=== PATIENT | female | born 1965 | race Caucasian/White ===

== ENCOUNTER 2017-03-08 11:39 | Emergency (ER) | payer SELFPAY ==
[2017-03-08 11:52] VITALS: BP 139/86
--- NOTE | 2017-03-08 12:13 | ER Document Report ---
HPI - HPI Patient complains to provider of: skin rash Onset: Other - 3 days Onset/Duration: Worse Quality of pain: Achy Pain Level: 4 Context: Patient complains of painful skin rash that started to develop to her right buttocks 3 days ago. Patient states rash has started to spread. Patient denies any fever or injury to the area. Associated Symptoms: Other - skin rash Exacerbated by: Movement Relieved by: Denies Similar symptoms previously: No Recently seen / treated by doctor: No - ROS ROS below otherwise negative: Yes Systems Reviewed and Negative: Yes All other systems reviewed and negative - CONSTITUTIONAL Constitutional: DENIES: Fever - REPRODUCTIVE Reproductive: DENIES: : - DERM Skin Color: Normal Skin Problems: Rash Past Medical History - General Information source: Patient - Social History Smoking Status: Current Every Day Smoker Frequency of alcohol use: None Drug Abuse: None Occupation: [employer] with: Family Family History: Reviewed & Not Pertinent - Medical History Medical History: Negative Renal/ Medical History: Denies: Hx Peritoneal Dialysis Past Surgical History: Reports: Hx Abdominal Surgery, Hx Section, Hx Tonsillectomy - Immunizations Immunizations up to date: Yes Hx Diphtheria, Pertussis, Tetanus Vaccination: No Vertical Provider Document - CONSTITUTIONAL Agree With Documented VS: Yes Exam Limitations: No Limitations General Appearance: WD/WN, No Apparent Distress - INFECTION CONTROL TRAVEL OUTSIDE OF THE [place] IN LAST 30 DAYS: No - HEENT HEENT: Atraumatic, Normocephalic - NECK Neck: Normal Inspection, Supple - RESPIRATORY Respiratory: Breath Sounds Normal, No Respiratory Distress, Chest Non-Tender O2 Sat by Pulse Oximetry: 97 - CARDIOVASCULAR Cardiovascular: Regular Rate, Regular Rhythm, No Murmur - BACK Back: Normal Inspection - MUSCULOSKELETAL/EXTREMETIES Musculoskeletal/Extremeties: MAEW, FROM - NEURO Level of Consciousness: Awake, Alert, Appropriate Motor/Sensory: No Motor Deficit - DERM Integumentary: Warm, Dry, Rash - Vesicular skin lesions to right buttocks with minimal surrounding erythema, no concern for abscess. Course - Vital Signs Vital signs: Temp Pulse Resp BP Pulse Ox 98.2 F 70 16 139/86 H 97 03/08/17 11:50 03/08/17 11:50 03/08/17 11:50 03/08/17 11:50 03/08/17 11:50 Discharge - Discharge Clinical Impression: Herpes zoster Qualifiers: Herpes zoster complications: without complications Qualified Code(s): B02.9 - Zoster without complications Condition: Stable Disposition: HOME, SELF-CARE Instructions: Shingles ([facility]), Oral Narcotic Medication ([facility]), Acyclovir ([facility]) Additional Instructions: return as needed for any new or worsening symptoms follow up with a primary care provider for a recheck Prescriptions: Acetaminophen with Codeine [Acetaminophen-Cod #3 Tablet] 1 each PO Q6 PRN #15 tablet PRN Reason: Acyclovir [Zovirax 200 mg Capsule] 800 mg PO Q4H #140 capsule Referrals: [facility] [Provider Group] - Follow up as needed
== END 2017-03-08 12:25 | disposition home or self-care (01) ==
LOC: ER 11:39
DX: B02.9 Zoster without complications (principal); R21 Rash and other nonspecific skin eruption
CPT/HCPCS: 99282

== ENCOUNTER 2018-04-03 19:52 | Emergency (ER) | payer SELFPAY ==
[2018-04-03] MEDS ORDERED: POLYMYXIN B SULFATE/TMP OPH SOLN (10 ML/ER DISP) OD PRN (23:04)
--- NOTE | 2018-04-03 23:10 | ER Document Report ---
HPI - HPI Pain Level: Denies Notes: Patient is a 52-year-old female with no significant past medical history who presents to the ED complaining of possible scratch to her right medial eye status post injury 4 days ago. Patient states that she was coloring/drawing with her daughter when her daughter stick a rather dull pencil towards her head when she turned to the right. Patient states that she has had some irritation, but no significant vision changes. Patient states that she did have another provider-friend look at it a couple days ago and they did not see anything significant at that time, but did not stain her eye. Patient states that she has not noticed any discharge from her eye. She does have soreness in that area. Denies any headache, fever, neck pain, changes in vision/speech/mentation /hearing, URI, sore throat, chest pain, palpitations, syncope, cough, shortness of breath, wheeze, dyspnea, abdominal pain, nausea/vomiting/diarrhea, urinary retention, dysuria, hematuria, or rash. Pt does not wear contacts. - ROS Systems Reviewed and Negative: Yes All other systems reviewed and negative - NEURO Neurology: REPORTS: Headache. DENIES: Vision blurred - REPRODUCTIVE Reproductive: DENIES: : Past Medical History - Social History Smoking Status: Unknown if Ever Smoked Chew tobacco use (# tins/day): No Drug Abuse: None Family History: Reviewed & Not Pertinent Patient has suicidal ideation: No Patient has homicidal ideation: No Renal/ Medical History: Denies: Hx Peritoneal Dialysis Past Surgical History: Reports: Hx Abdominal Surgery, Hx Section, Hx Tonsillectomy - Immunizations Immunizations up to date: Yes Hx Diphtheria, Pertussis, Tetanus Vaccination: No Vertical Provider Document - CONSTITUTIONAL Agree With Documented VS: Yes Notes: PHYSICAL EXAMINATION: GENERAL: Well-appearing, well-nourished and in no acute distress. A&Ox4 HEAD: Atraumatic, normocephalic. EYES: Pupils equal round and reactive to light, extraocular movements intact, sclera anicteric, conjunctiva left shows very mild episcleritis right w/o discharge or matting. Non-tender to palp of the globe and eye itself. No surrounding erythema or swelling noted. Visual acuity 20/40 b/l and in each eye (performed by myself at bedside with my own eye chart). Tonometry averaged 12 b/l. Wood's lamp/flourescein: No laceration, ulceration, or ira sign noted. No obvious foreign body appreciated. + small abrasion noted. ENT: Nares patent and without discharge. oropharynx clear without exudates. No tonsilar hypertrophy or erythema. Moist mucous membranes. NECK: Normal range of motion, supple without lymphadenopathy. No rigidity/ meningismus. LUNGS: Breath sounds clear to auscultation bilaterally and equal. No wheezes rales or rhonchi. HEART: Regular rate and rhythm without murmurs, rubs, gallops. NEUROLOGICAL: Cranial nerves grossly intact. Normal speech, normal gait. PSYCH: Normal mood, normal affect. SKIN: Warm, Dry, normal turgor, no rashes or lesions noted. - INFECTION CONTROL TRAVEL OUTSIDE OF THE [place] IN LAST 30 DAYS: No Course - Re-evaluation Re-evalutation: 04/03/18 23:08 Patient is an afebrile, well-hydrated, 52-year-old female who presents to the ED with a small abrasion to her right eye and some mild episcleritis medially. Vitals are acceptable without any significant tachycardia, tachypnea, or hypoxia. PE is otherwise unremarkable. See eye exam. Tonometry averaged 12 bilaterally. Polytrim dispensed today. Patient is nontoxic-appearing is tolerating p.o. without any difficulties. No further labs or imaging warranted at this time based on H&P. Tetracaine did resolve her discomfort to the right eye when applied. Low suspicion for any retained corneal or lid foreign body, deep space infection including orbital cellulitis/abscess, acute glaucoma, penetrating globe injury, retinal detachment, meningitis, sepsis, fracture, compartment syndrome. Conservative measures otherwise for symptoms with proper handwashing. Recheck with your PCM in 2-3 days. Schedule a f/u with Ophthalmology next week. Return to the ED with any worsening/concerning symptoms otherwise as reviewed in discharge. Patient is in agreement. - Vital Signs Vital signs: Temp Pulse Resp BP Pulse Ox 98.4 F 84 15 144/93 H 97 04/03/18 20:14 04/03/18 20:14 04/03/18 20:14 04/03/18 20:14 04/03/18 20:14 Procedures - Eye Procedure Right Time completed: 23:00 Eye Irrigated w/ Saline (ccs): 10 Alcaine Drops Administered: Yes - tetracaine Fluorescein applied: Right Antibiotic Oinment/Drps Admin: Right eye Slit lamp used: No Bilateral Time completed: 23:00 Eye Irrigated w/ Saline (ccs): 10 - Tonometry performed successfully w/o complications Alcaine Drops Administered: Yes - tetracaine Discharge - Discharge Clinical Impression: Episcleritis of right eye Corneal abrasion Qualifiers: Encounter type: initial encounter Laterality: right Qualified Code(s): S05.01XA - Injury of conjunctiva and corneal abrasion without foreign body, right eye, initial encounter Condition: Stable Disposition: HOME, SELF-CARE Instructions: Corneal Abrasion ([facility]) Additional Instructions: keep eyes clean Avoid scratching/touching eyes Wash hands regularly Use eye drops as directed Maintain adequate fluid intake tylenol/ibuprofen as needed over the counter cold medication as needed for symptoms F/u: with your PCM in 2-3 days for a recheck Schedule an appointment with ophthalmology for further evaluation, call tomorrow Return to the ED with any worsening symptoms and/or development of fever, headache, changes in vision, eye pain, worsening eye redness, redness around the eyes, purulent discharge, sore throat, facial swelling, neck pain/stiffness , chest pain, palpitations, syncope, shortness of breath, trouble breathing, abdominal pain, n/v/d, blood in stool/urine, dysuria, or other worsening symptoms that are concerning to you. Forms: Elevated Blood Pressure Referrals: RSIA CRABTREE MD [ACTIVE STAFF] - Follow up in 3-5 days
[2018-04-03] MEDS ORDERED: POLYMYXIN B SULFATE/TMP OPH SOLN 10 ML ONE (23:21)
[2018-04-04 00:24] VITALS: BP 150/95
== END 2018-04-04 00:24 | disposition home or self-care (01) ==
LOC: ER 19:52
DX: H15.101 Unspecified episcleritis, right eye (principal); S05.01XA Injury of conjunctiva and corneal abrasion without foreign body, right eye, initial encounter; X58.XXXA Exposure to other specified factors, initial encounter
CPT/HCPCS: 99283

== ENCOUNTER 2018-05-30 15:27 | Emergency (ER) | payer SELFPAY ==
[2018-05-30] MEDS ORDERED: VALACYCLOVIR HCL 500 MG TABLET PO ONE (16:59)
[2018-05-30 17:00] VITALS: BP 132/94
--- NOTE | 2018-05-30 17:08 | ER Document Report ---
HPI - HPI Pain Level: 1 Notes: Patient presents with chief complaint of possible shingles outbreak to her right buttock. Patient is also concerned that she may have shingles in her right eye. Patient reports history of shingles. States this feels similar. Has never had shingles in her eye. - REPRODUCTIVE Reproductive: DENIES: : Past Medical History - General Information source: Patient - Social History Smoking Status: Current Every Day Smoker Frequency of alcohol use: None Drug Abuse: None Family History: Reviewed & Not Pertinent Patient has suicidal ideation: No Patient has homicidal ideation: No - Medical History Medical History: Negative Renal/ Medical History: Denies: Hx Peritoneal Dialysis Past Surgical History: Reports: Hx Abdominal Surgery, Hx Appendectomy, Hx Section, Hx Tonsillectomy, Hx Tubal Ligation - Immunizations Immunizations up to date: Yes Hx Diphtheria, Pertussis, Tetanus Vaccination: No Vertical Provider Document - CONSTITUTIONAL Notes: PHYSICAL EXAMINATION: GENERAL: Well-appearing, well-nourished and in no acute distress. HEAD: Atraumatic, normocephalic. EYES: Pupils equal round extraocular movements intact, conjunctiva are normal, no erythema, drainage or swelling noted, no dendrites noted. ENT: Nares patent, one small red dot noted on the right side of nose. NECK: Normal range of motion LUNGS: No respiratory distress Musculoskeletal: Normal range of motion NEUROLOGICAL: Normal speech, normal gait. PSYCH: Normal mood, normal affect. SKIN: Warm, Dry, normal turgor, rash to inside of right buttock noted, it appears vesicular, consistent with shingles. - INFECTION CONTROL TRAVEL OUTSIDE OF THE [place] IN LAST 30 DAYS: No Course - Re-evaluation Re-evalutation: Eye examination was performed, tetracaine drop was instilled. No erythema, swelling or drainage noted to the external eye. No dendrites noted. No obvious lesions were noted consistent with ophthalmic shingles. Consulted my attending Dr. Mederos who does recommend consulting ophthalmology. 05/30/18 17:[address] Vaca, Opthomologist on-call for [facility] eye clinic, at [facility]. She agrees to see patient in the office tomorrow morning at 930. She recommends putting the patient on Valtrex 1000 mg 3 times daily. She states this will cover not only for the shingles on the buttocks but for possible ophthalmic shingles. Patient will be discharged in stable condition, discussed the importance of follow-up with patient, patient agrees to see Dr. Vaca tomorrow morning at 0930. - Vital Signs Vital signs: Temp Pulse Resp BP Pulse Ox 98.3 F 73 18 132/94 H 97 05/30/18 16:57 05/30/18 16:57 05/30/18 16:57 05/30/18 16:57 05/30/18 16:57 Discharge - Discharge Clinical Impression: Shingles Qualifiers: Herpes zoster complications: without complications Qualified Code(s): B02.9 - Zoster without complications Condition: Stable Disposition: HOME, SELF-CARE Additional Instructions: Shingles You have shingles. Shingles is caused by the chicken pox virus, The virus has been surviving dormant in a nerve cell since you had chicken pox years ago. The virus has spread down a nerve root to reach the skin. Typically, an band-like area of pain and skin sensitivity develops, then small blisters erupt in the area. Shingles lasts two or three weeks, but sometimes leaves persistent pain. You are contagious -- you can give children chicken pox. But you can't give anyone shingles. Antiviral medicines (such as acyclovir or famciclovir) can help, but the rash usually worsens for about a week. Pain medication is often given if the area hurts. Antihistamines such as Benadryl may be necessary for itching if it does not respond to soda baths and calamine lotion. Sometimes cortisone medicine or nerve-block shots are necessary if pain is severe. If the area remains severely painful as the sores heal, or if you suspect an infection developing in the sores, see your doctor. While it does not appear to be that you have shingles in your eye, we cannot rule it out. I have consulted Dr. Vaca at [facility] in [place] as she is the covering on-call provider. She states that she would like you to start taking Valtrex 1 g 3 times daily. And she would like to see you tomorrow morning in her [place] office at 9:30 AM. It is [facility] it is located on the corner of [address]. I have enclosed the contact information as well. Please take the medication as prescribed, you were given the first dose today, you can get the prescription filled tomorrow and start the second dose in the morning. [facility] Dr. Vaca [address] [place] [address] Prescriptions: Hydrocodone/Acetaminophen [Hydrocodon-Acetaminophen 5-325] 1 each PO Q4H PRN # 12 tablet PRN Reason: For Pain Valacyclovir HCl [Valtrex 500 Mg Tablet] 1,000 mg PO TID #21 tablet
== END 2018-05-30 17:24 | disposition home or self-care (01) ==
LOC: ER 15:27
DX: B02.9 Zoster without complications (principal); F17.200 Nicotine dependence, unspecified, uncomplicated
CPT/HCPCS: 99283

== ENCOUNTER 2020-07-05 22:23 | Emergency (ER) | payer SELFPAY ==
[2020-07-05] MEDS ORDERED: KETOROLAC TROMETHAMINE INJ/PF 30 MG/1 ML SDV IV ONE (22:51)
--- NOTE | 2020-07-05 22:51 | ER Document Report ---
ED Fall - General Chief Complaint: Back Pain Stated Complaint: FALL/BACK PAIN Time Seen by Provider: 07/05/20 22:34 Information source: Patient Notes: This 54-year-old woman who presents to the emergency department with a history of a fall while playing with her child. Apparently they were having a competition to see who could keep the hiatus she kicked with her right leg and her left leg went from under her and she fell backwards and hitting her back and hip area. She denies loss of consciousness she denies neck neck pain. She was brought to the emergency department by EMS, apparently given Zofran 4 mg and f entanyl 50 mcg. She complains of pain in the midline lower back and kidney area. She denies numbness in the lower extremities, incontinence of urine or stool, there is no saddle paresthesia. TRAVEL OUTSIDE OF THE [place] IN LAST 30 DAYS: No - Related data Allergies/Adverse Reactions: codeine Allergy (Verified 05/30/18 15:29) Past Medical History - General Information source: Patient - Social History Smoking Status: Current Every Day Smoker Frequency of alcohol use: None Drug Abuse: None Family History: Reviewed & Not Pertinent Renal/ Medical History: Denies: Hx Peritoneal Dialysis Past Surgical History: Reports: Hx Abdominal Surgery, Hx Appendectomy, Hx Section, Hx Tonsillectomy, Hx Tubal Ligation - Immunizations Immunizations up to date: Yes Hx Diphtheria, Pertussis, Tetanus Vaccination: No Review of Systems - Review of Systems Notes: Constitutional: Negative for fever. HENT: Negative for sore throat. Eyes: Negative for visual changes. Cardiovascular: Negative for chest pain. Respiratory: Negative for shortness of breath. Gastrointestinal: Negative for abdominal pain, vomiting or diarrhea. Genitourinary: Negative for dysuria. Musculoskeletal: See HPI Skin: Negative for rash. Neurological: Negative for headaches, weakness or numbness. 10 point ROS negative except as marked above and in HPI. Physical Exam - Vital signs Vitals: Temp 98.2 F 07/05/20 22:23 - Notes Notes: PHYSICAL EXAMINATION: Physical Exam: General: Well-nourished well-developed 54-year-old female in no acute distress HEENT: NC/AT, pupils equal round and reactive to light, MM moist,nares clear, oropharynx clear, airway patent Neck: supple, no adenopathy, no masses. Good range of motion Lungs: clear, no wheezing, no rales no rhonchi CVS: Regular rate and rhythm no murmur gallop or rub Abdomen: Soft, active, nontender, no masses, no hepatosplenomegaly Ext: No edema, clubbing or cyanosis. Back: Tenderness in the midline lumbar region, no crepitus, no obvious deformity. Neuro: Alert and responsive, moving all 4 extremities on command, cranial nerves intact, no focal findings Skin: Intact no open lesions, no rash PSYCH: Normal mood, normal affect. Course - Re-evaluation Re-evalutation: 07/06/20 03:01 Patient is resting well. I reviewed the findings of the CT scan showing a T11 compression fracture approximately 40%, explained the patient is a painful condi tion and that there is a procedure called kyphoplasty which may be used to treat the compression. The [facility], orthopedic services at [facility] in [facility] have the capability of managing this problem. - Vital Signs Vital signs: Temp Pulse Resp BP Pulse Ox 97.8 F 82 20 145/63 H 97 07/06/20 03:43 07/06/20 03:43 07/06/20 03:43 07/06/20 03:43 07/06/20 03:43 - Laboratory Results Critical Laboratory Results Reviewed: No Critical Results Attending or Supervising Physician who Reviewed Labs: ELOISE LOPEZ - Radiology Results Radiology Results Interpreted: 07/06/20 03:[address] 07/05/20 22:54 IMPRESSION: 1. Acute T12 compression fracture with mild bony retropulsion as above. There is also mild, broad-based depression of the inferior endplate of T11, favored to be acute as well. 2. Incidental, 4.9 cm left adnexal cystic mass. Correlation with ultrasound is recommended. 3. Incidental emphysematous changes and evidence of arterial vascular disease. TECHNICAL DOCUMENTATION: Quality ID # 436: Final reports with documentation of one or more dose reduction techniques (e.g., Automated exposure control, adjustment of the mA and/or kV according to patient size, use of iterative reconstruction technique) copyright 2011 [employer]- All Rights Reserved Thoracic Spine CT 07/05/20 22:54 IMPRESSION: 1. Acute T12 compression fracture with mild bony retropulsion as above. There is also mild, broad-based depression of the inferior endplate of T11, favored to be acute as well. 2. Incidental, 4.9 cm left adnexal cystic mass. Correlation with ultrasound is recommended. 3. Incidental emphysematous changes and evidence of arterial vascular disease. TECHNICAL DOCUMENTATION: Quality ID # 436: Final reports with documentation of one or more dose reduction techniques (e.g., Automated exposure control, adjustment of the mA and/or kV according to patient size, use of iterative reconstruction technique) copyright 2011 [employer]- All Rights Reserved Critical Radiology Results Reviewed: Yes Attending or Supervising Physician who Reviewed Radiology: ELOISE LOPEZ Discharge - Discharge Clinical Impression: Compression fracture of T11 vertebra Qualifiers: Encounter type: initial encounter Qualified Code(s): S22.080A - Wedge compression fracture of T11-T12 vertebra, initial encounter for closed fracture Condition: Good Disposition: HOME, SELF-CARE Instructions: Compression Fracture of the Spine ([facility]), Ice Packs ([facility]), Oral Narcotic Medication ([facility]) Additional Instructions: You were seen in the emergency department ismael with a history of fall in which she sustained a compression fracture of T11. This is a fracture which is sometimes treated with kyphoplasty. This procedure can be help heal the process quicker. The [facility] orthopedic group in [facility] has the ability to perform the procedure. The telephone number is area code [phone]. An appointment can be requested for further evaluation and treatment. You were given medications to use for pain and for nausea. Please take the medications as prescribed. You may supplement ibuprofen for pain and apply a cold compress to the area on the area of pain. If your symptoms are worsening or if you have other concerns you may return to the emergency department for further evaluation and treatment. HOME CARE INSTRUCTIONS & INFORMATION: Thank you for choosing us for your medical needs. We hope you're satisfied with the care you received. After you leave, you must properly care for your problem and, at the same time, observe its progress. Any condition can change. Some illnesses can change rapidly over hours or days. If your condition worsens, return to the Emergency Department or see your physician promptly. ABOUT YOUR X-RAYS AND EKG'S: If you had an EKG or X-rays taken, they have been read by the Emergency Physician. The X-rays and EKG's will also be read by a Radiologist or Stock Replenisher within 24 hours. If discrepancies are noted, you will be notified by telephone. Please be certain the ED has a correct telephone number & address where you can be reached. Also, realize that some fractures or abnormalities do not show up on initial X-rays. If your symptoms continue, see your physician. ABOUT YOUR LABORATORY TEST: If you had laboratory tests, the results have been reviewed by the Emergency Physician. Some test results (for example cultures) may not be available for several days. You will be contacted if any test result shows you need additional treatment. Please be certain the ED has a correct telephone number and address where you can be reached. ABOUT YOUR MEDICATIONS: You will receive instructions on how to take your medicine on the prescription label you receive. Additional information may be provided by the Pharmacy. If you have questions afterwards, call the ED for clarification or further instructions. Some prescribed medications may cause drowsiness. Do not perform tasks such as driving a car or operating machinery without consulting your Pharmacist. If you feel you need a refill of pain medication, your condition will need re-evaluation. Please do not call for a refill of any medication. ABOUT YOUR SIGNATURE: Signature of this document acknowledges to followin. Understanding that you received emergency treatment and that you may be released before al medical problems are known or treated. Please be certain the ED has a correct phone number & address where you can be reached. 2. Acknowledgement that you will arrange for follow-up care as recommended. 3. Authorization for the Emergency Physician to provide information to your follow-up Physician in order to maximize your care. AT ANY TIME, IF YOUR SYMPTOMS CHANGE SIGNIFICANTLY OR WORSEN OR YOU DEVELOP NEW SYMPTOMS, RETURN TO THE EMERGENCY DEPARTMENT IMMEDIATELY FOR RE-EVALUATION. OUR GOAL IS TO PROVIDE EXCELLENT MEDICAL CARE! WE HOPE THAT WE HAVE MET YOUR EXPECTATIONS DURING YOUR EMERGENCY DEPARTMENT VIS IT AND THAT YOU FEEL YOU HAVE RECEIVED EXCELLENT CARE! Prescriptions: Oxycodone HCl/Acetaminophen [Percocet 5-325 mg Tablet] 1 tab PO Q4H PRN #15 tablet PRN Reason: Ondansetron [Zofran Odt 4 mg Tablet] 1 tab PO Q4H PRN #10 tab.rapdis PRN Reason: For Nausea/Vomiting
[2020-07-05 23:57] LABS: APPEARANCE,URINE CLEAR; BILIRUBIN,URINE NEGATIVE (NEGATIVE); COLOR,URINE YELLOW; GLUCOSE, URINE NEGATIVE (NEGATIVE); KETONES,URINE NEGATIVE (NEGATIVE); PROTEIN,URINE NEGATIVE (NEGATIVE); URINE SPECIFIC GRAVITY 1.011; UROBILINOGEN,URINE NEGATIVE mg/dL (<2.0)
--- NOTE | 2020-07-06 00:25 | RADIOLOGY REPORT (SQ) ---
EXAM DESCRIPTION: CT THORACIC SPINE WITHOUT IV CONTRAST, CT LUMBAR SPINE WITHOUT IV CONTRAST COMPLETED DATE/TME: 07/05/2020 23:42 CLINICAL HISTORY: 54 years, Female, back injury and pain. Fracture. COMPARISON: None. TECHNIQUE: Noncontrast axial, coronal, and sagittal images of the thoracic spine and lumbar spine were obtained. Images stored on PACS. All CT scanners at this facility use dose modulation, iterative reconstruction, and/or weight based dosing when appropriate to reduce radiation dose to as low as reasonably achievable (ALARA). [facility]: Dose Right [facility]: CareDose [facility]: Dose Right [facility]: Teradose 4D [facility]: Ansira LIMITATIONS: None. FINDINGS: There is an acute-appearing T12 compression fracture with approximately 40% loss of height anteriorly and 3 mm bony retropulsion, without significant acquired spinal canal stenosis. There is a small adjacent paraspinal hematoma. The posterior elements are intact. There is no subluxation. There is slight broad-based concave depression of the inferior endplate of T11, which could be acute or chronic, with the former favored. Remaining thoracic and lumbar vertebral body heights are maintained. No definite focal disc protrusion is identified. There is partial visualization of at least mild biapical emphysematous changes and there is also mild biapical subpleural scarring. No layering pleural fluid collection is seen. Arterial calcifications are identified. There is no abdominal aortic aneurysm. There is a 4.9 cm cystic mass in the left adnexal region. Correlation with pelvic ultrasound is recommended. IMPRESSION: 1. Acute T12 compression fracture with mild bony retropulsion as above. There is also mild, broad-based depression of the inferior endplate of T11, favored to be acute as well. 2. Incidental, 4.9 cm left adnexal cystic mass. Correlation with ultrasound is recommended. 3. Incidental emphysematous changes and evidence of arterial vascular disease. TECHNICAL DOCUMENTATION: Quality ID # [id number]: Final reports with documentation of one or more dose reduction techniques (e.g., Automated exposure control, adjustment of the mA and/or kV according to patient size, use of iterative reconstruction technique) copyright 2011 [employer]- All Rights Reserved
[2020-07-06] MEDS ORDERED: KETOROLAC TROMETHAMINE INJ/PF 30 MG/1 ML SDV IV ONE (01:49)
[2020-07-06] MEDS ORDERED: HYDROCODONE/ACETAMINOPHEN 5-325 MG (6 TAB/ER DISP) PO PRN (03:06)
[2020-07-06] MEDS ORDERED: HYDROMORPHONE HCL INJ/PF 2 MG/ML AMPULE IV ONE (03:32)
[2020-07-06] MEDS ORDERED: ONDANSETRON HCL INJ/PF 4 MG/2 ML SDV IV ONE (03:33)
[2020-07-06] MEDS ORDERED: ONDANSETRON ODT 4 MG TAB (6 TAB/ER DISP) PO PRN (03:43)
[2020-07-06 03:48] VITALS: BP 145/63
== END 2020-07-06 04:00 | disposition home or self-care (01) ==
LOC: ER 22:23
DX: S22.080A Wedge compression fracture of T11-T12 vertebra, initial encounter for closed fracture (principal); M54.9 Dorsalgia, unspecified; W18.39XA Other fall on same level, initial encounter; F17.200 Nicotine dependence, unspecified, uncomplicated
CPT/HCPCS: 96376; 99285; 96374; 96375; 81001; 72128; 72131; J1885 ×2; J1170; J2405